=== PATIENT | female | born 1940 | race Caucasian/White ===

== ENCOUNTER → 2019-01-03 | Outpatient (CLI) | payer MEDICARE ==
[~2019-01-03] MED LIST: AMIT10TA PO; ASCO100019 PO; CALC-141 PO; CHOL200052 PO; DOCU100T6 PO; METO-99 PO; MULT-658 PO; NEUROPATHY SUPPORT PO; OLME1TAB22 PO; POTASSIUM PO; RIVA20TA PO; ZINC50TA3 PO
== END | disposition home or self-care (01) ==
LOC: CFH 09:27
PROVIDERS: ATTEND Nurse Practitioner Family
DX: I08.0 Rheumatic disorders of both mitral and aortic valves (principal); I48.2 Chronic atrial fibrillation; I10 Essential (primary) hypertension; Z85.3 Personal history of malignant neoplasm of breast
CPT/HCPCS: 93306

== ENCOUNTER → 2021-02-05 | Outpatient (CLI) | payer MEDICARE ==
[~2021-02-05] MED LIST changes: +ZINC50TA10 PO; -ZINC50TA3 PO
== END | disposition home or self-care (01) ==
LOC: CVU 10:37
PROVIDERS: ATTEND Internal Medicine Cardiovascular Disease
DX: I08.0 Rheumatic disorders of both mitral and aortic valves (principal); I10 Essential (primary) hypertension; I48.19 Other persistent atrial fibrillation; Z85.3 Personal history of malignant neoplasm of breast
CPT/HCPCS: C8929; Q9957

== ENCOUNTER 2021-04-30 12:26 | Outpatient (CLI) | payer MEDICARE ==
[~2021-04-30 12:26] MED LIST changes: +REGADENOSON 0.4 MG/5 ML SYRINGE ONE
== END 2021-05-01 23:59 | disposition home or self-care (01) ==
LOC: CFH 12:26
PROVIDERS: ATTEND Internal Medicine Cardiovascular Disease
DX: I10 Essential (primary) hypertension (principal); I48.19 Other persistent atrial fibrillation
CPT/HCPCS: 78452; 93017; A9502; J2785

== ENCOUNTER 2021-05-01 08:00 | Outpatient (CLI) | payer MEDICARE ==
[~2021-05-01 08:00] MED LIST changes: -REGADENOSON 0.4 MG/5 ML SYRINGE ONE
== END 2021-05-01 23:59 | disposition home or self-care (01) ==
LOC: CFH 08:00
PROVIDERS: ATTEND Internal Medicine Cardiovascular Disease
DX: I10 Essential (primary) hypertension (principal); I48.19 Other persistent atrial fibrillation
CPT/HCPCS: 78452